=== PATIENT | male | born 1940 | race Hispanic/Latino ===

== ENCOUNTER → 2017-08-18 | Outpatient (CLI) | payer MEDICARE ==
[~2017-08-18] MED LIST: CALCIUM PO; CARAFATE1 GM/10 ML PO; DEXILANT60 MG; DEXILANT60 MG PO; DIOVAN160 MG PO; DIOVAN80 MG PO; DOXYCYCLINE HY100 MG PO; GABAPENTIN100 MG PO; LISINOPRIL-HCT1 EACH PO; LISINOPRIL20 MG PO; LOSARTAN PO; MAGNESIUM PO; MELATONIN3 MG PO; MULTI-VITAMIN1 EACH PO; NEXIUM40 MG PO; PANTOPRAZOLE SO40 MG PO; PRAVASTATIN SOD40 MG PO; PRILOSEC40 MG PO; TEMAZEPAM15 MG PO; TYLENOL WITH C1 EACH PO; ZINC PO
--- NOTE | 2017-08-18 11:21 | Diagnostic Imaging Report ---
PROCEDURE: SMALL BOWEL SERIES Comparison: None. Indications: ABDOMEN PAIN Technique: Small bowel follow through exam was performed using oral barium. Preliminary image was obtained before administration of contrast and serial overhead images were obtained after administration of oral barium. Fluoroscopy was performed and spot images were obtained. Findings: SMALL BOWEL FOLLOW THROUGH: Small bowel loops are normal in caliber and distribution. Spot compression views of the terminal ileum are normal. The transit time was normal. IMPRESSION: No acute radiographic abnormality. Dictated by: Matthew Camargo M.D. on 08/18/2017 at 11:30 Electronically approved by: Matthew Camargo M.D. on 08/18/2017 at 11:30
== END ==
LOC: DX 07:22
PROVIDERS: ATTEND Internal Medicine Gastroenterology
DX: R10.9 Unspecified abdominal pain (principal)
CPT/HCPCS: 74250

== ENCOUNTER → 2017-09-13 | Outpatient (CLI) | payer MEDICARE ==
[~2017-09-13] MED LIST changes: +GADOBENATE DIMEGLUMINE 1 ML IV ONE; +SODIUM CHLORIDE 0.9% 50ML 50 ML ONE
[2017-09-13 08:55] LABS: BLOOD UREA NITROGEN 6 mg/dL (8-26); BUN/CREATININE RATIO 7 (6-25); EST GLOMERULAR FILTRATION RATE > 60 ML/MIN (60-)
[2017-09-13 08:56] LABS: CREATININE, SERUM 0.9 mg/dL (0.9-1.3)
--- NOTE | 2017-09-16 13:22 | Diagnostic Imaging Report ---
EXAM: MRA ABDOMEN WOW DATE: 09/13/2017 8:18 AM INDICATION: Abdominal pain COMPARISON: CT 03/01/2017 Technique: Multiplanar multisequence MRI/MRA of the abdomen was obtained before and after the administration of 28 mL of MultiHance IV contrast. Limitations: Moderate motion artifact. FINDINGS: Visualized chest: Ascending aorta 40 mm. No pleural effusion. Common origin of the left common carotid and right brachycephalic arteries present. Left atrial enlargement suspected. Solid organs: There is a 21 mm simple appearing cystic lesion in the left hepatic lobe. Subcentimeter exophytic cyst mid right kidney. Trace bilateral perinephric stranding statistically senescent. Solid organs are otherwise unremarkable. Venous structures: No thrombus identified in the IVC. Arterial structures: No aortic aneurysm or dissection. No significant atherosclerotic change identified. Visualized mesenteric arteries are patent. Dual left renal arteries better demonstrated on previous CT. There is possible narrowing of the proximal celiac trunk. Visualized bowel: No small bowel obstructive changes. IMPRESSION: 1. No aortic aneurysm or significant atherosclerotic change. Within limitations, mesenteric vessels grossly unremarkable. Narrowing proximal celiac trunk possible. Dedicated CTA could be obtained for further evaluation if indicated. 2. Simple appearing cyst in the liver and right kidney. 3. Ectasia ascending thoracic aorta. 4. Left atrial enlargement. Signed by: Dr. Richmond Roper MD on 09/16/2017 1:19 PM
== END ==
LOC: MRI 07:54
PROVIDERS: ATTEND Internal Medicine Gastroenterology
DX: R10.9 Unspecified abdominal pain (principal); M54.10 Radiculopathy, site unspecified
CPT/HCPCS: 36415; 82565; 84520; C8902; 74185

== ENCOUNTER 2018-10-14 10:20 | Emergency (ER) | payer MEDICARE ==
[~2018-10-14] VITALS: Ht 165.1 cm; Wt 62.6 kg
[~2018-10-14 10:20] MED LIST changes: -GADOBENATE DIMEGLUMINE 1 ML IV ONE; -SODIUM CHLORIDE 0.9% 50ML 50 ML ONE
--- OUTSIDE RECORDS SUMMARY | 2018-10-14 10:24 | XMS REPORT ---
Author Author [facility] Address Unknown Phone Unavailable Care Team Providers Care Group Director Name Role Phone ANNE-MARIE LANZA Unavailable Unavailable Problems This patient has no known problems. Allergies, Adverse Reactions, Alerts This patient has no known allergies or adverse reactions. Medications This patient has no known medications. Results Test Description Test Time Test Comments Text Results Atomic Results Result Comments MRA ABDOMEN WOW [place] [address] Patient Name: MASON CRAWLEY JR MR #: [id number] : 1940 Age/Sex: 77/M Req #: [id number] Adm Physician: Ordered by: ANNE-MARIE LANZA MD Report #: [id number] Location: MRI Room/Bed: Procedure: [id number] MRI/MRA ABDOMEN WOW Exam Date: 09/13/17 Exam Time: 15 REPORT STATUS: Signed EXAM: MRA ABDOMEN WOW DATE: 09/13/2017 8:18 AM INDICATION: Abdominal pain COMPARISON: CT 03/01/2017 Technique: Multiplanar multisequence MRI/MRA of the abdomen was obtained before and after the administration of 28 mL of MultiHance IV contrast. Limitations: Moderate motion artifact. FINDINGS: Visualized chest: Ascending aorta 40 mm. No pleural effusion. Common origin of the left common carotid and right b rachycephalic arteries present. Left atrial enlargement suspected. Solid organs: There is a 21 mm simple appearing cystic lesion in the left hepatic lobe. Subcentimeter exophytic cyst mid right kidney. Trace bilateral perinephric stranding statistically senescent. Solid organs are otherwise unremarkable. Venous structures: No thrombus identified in the IVC. Arterial structures: No aortic aneurysm or dissection. No significant atherosclerotic change identified. Visualized mesenteric arteries are patent. Dual left renal arteries better demonstrated on previous CT. There is possible narrowing of the proximal celiac trunk. Visualized bowel: No small bowel obstructive changes. IMPRESSION: 1. No aortic aneurysm or significant atherosclerotic change. Within limitations, mesenteric vessels grossly unremarkable. Narrowing proximal celiac trunk possible. Dedicated CTA could be obtained for further evaluation if indicated. 2. Simple appearing cyst in the liver and right kidney. 3. Ectasia ascending thoracic aorta. 4. Left atrial enlargement. Signed by: Dr. Richmond Roper MD on 09/16/2017 1:19 PM Dictated By: RICHMOND ROPER MD [id number] Transcribed By: RAQUEL on 09/16/17 1319 COPY TO: ANNE-MARIE LANZA MD SMALL BOWEL SERIES [place] [address] Patient Name: MASON CRAWLEY JR MR #: [id number] : 1940 Age/Sex: 77/M Req #: [id number] Adm Physician: Ordered by: ANNE-MARIE LANZA MD Report #: [id number] Location: DX Room/Bed: Procedure: [id number] DX/SMALL BOWEL SERIES Exam Date: 08/18/17 Exam Time: 1030 REPORT STATUS: Signed PROCEDURE: SMALL BOWEL SERIES Comparison: None. Indications: ABDOMEN PAIN Technique: Small bowel follow through exam was performed using oral barium. Preliminary image was obtained before administration of contrast and serial overhead images were obtained after administration of oral barium. Fluoroscopy was performed and spot images were obtained. Findings: SMALL BOWEL FOLLOW THROUGH: Small bowel loops are normal in caliber and distribution. Spot compression views of the terminal ileum are normal. The transit time was normal. IMPRESSION: No acute radiographic abnormality. Dictated by: Nicol Rebolledo M.D. on 08/18/2017 at 11:30 Electronically approved by: Nicol Rebolledo M.D. on 08/18/2017 at 11:30 Dictated By: NICOL REBOLLEDO MD 1130 Transcribed By: MARIELLE on 08/18/17 1130 COPY TO: ANNE-MARIE LANZA MD
--- OUTSIDE RECORDS SUMMARY | 2018-10-14 10:24 | XMS REPORT | Clinical Summary ---
Author Author [facility] Address Unknown Phone Unavailable Care Team Providers Care Acetylene Cutter Name Role Phone Toño Rogers MD PCP Allergies No Known Allergies Medications End Date Status Medication Sig Dispensed Refills Start Date Active calcium carbonate Take 1 tablet 0 (CALCIUM 500 ORAL) by mouth daily. Active magnesium 30 mg tablet Take 1 tablet 0 by mouth daily. Active zinc sulfate (ZINC-15 Take 1 tablet 0 ORAL) by mouth daily. Active cholecalciferol, vitamin Take 2,000 0 D3, (VITAMIN D3) 2,000 Units by unit capsule capsule mouth daily. Active HYDROcodone-acetaminophen 1 tablet as 0 (NORCO) 7.5-325 mg per needed. 8 tablet Active famotidine (PEPCID) 40 MG 1 tablet 2 0 tablet (two) times a 8 day. Active nortriptyline (PAMELOR) 1 capsule 0 25 MG capsule nightly. 8 Active temazepam (RESTORIL) 30 1 capsule 0 mg capsule daily. 8 Active cyanocobalamin (VITAMIN Take 1,000 0 B-12) 1000 MCG tablet mcg by mouth daily. Active apixaban (ELIQUIS) 5 mg 10mg po bid 82 tablet 0 tablet times seven 9 days, then 5mg po bid times 14 days with food dispense qs( todays pm dose given in ER) dispense qs 03/23/2018 Discontinued LYRICA 100 mg capsule 1 capsule 2 0 (two) times a 8 day. 06/02/2018 Discontinued LYRICA 100 mg Take 1 90 capsule 1 capsuleIndications: capsule by 8 Neuropathic pain mouth 3 times daily 09/09/2018 pregabalin (LYRICA) 100 Take 1 120 capsule 2 MG capsuleIndications: capsule po in 8 Neuropathic pain am and afternoon and 2 capsules qhs 08/18/2018 acetaminophen-codeine Take 1 tablet 14 tablet 0 (TYLENOL WITH CODEINE #3) by mouth 9 300-30 mg per tablet every 6 (six) hours as needed for moderate pain for up to 5 days. Active Problems Problem Noted Date Idiopathic peripheral neuropathy 03/23/2018 Neuropathic pain 03/23/2018 Chronic right-sided low back pain without sciatica 03/23/2018 Encounters Care Team Description Date Type Specialty Monty Schmidt MD Acute deep vein thrombosis (DVT) of distal vein of right lower extremity (HCC) (Primary Dx) 08/13/2018 Emergency Emergency Medicine Alicia Dacosta MD 06/22/2018 Telephone Neurology Alicia Dacosta MD Neuropathic pain 06/02/2018 Refill Neurology Alicia Dacosta MD 05/11/2018 Telephone Neurology Alicia Dacosta MD 04/27/2018 Telephone Neurology Alicia Dacosta MD 04/26/2018 Telephone Neurology Alicia Dacosta MD Idiopathic peripheral neuropathy (Primary Dx) 04/20/2018 Telephone Neurology Alicia Dacosta MD Idiopathic peripheral neuropathy (Primary Dx); Neuropathic pain; Chronic right-sided low back pain without sciatica 03/23/2018 Office Visit Neurology after 10/13/2017 Family History Medical History Relation Name Comments Lung cancer Father Lung cancer Mother Stroke Mother Relation Name Status Comments Father (Age 65) Mother (Age 65) Social History Date Tobacco Use Types Packs/Day Years Used Never Smoker Smokeless Tobacco: Never Used Alcohol Use Drinks/Week oz/Week Comments Yes 7 Shots of 4.2 liquor Sex Assigned at Date Recorded Not on file Industry Job Start Date Occupation Not on file Not on file Not on file Travel End Travel History Travel Start No recent travel history available. Last Filed Vital Signs Time Taken Vital Sign Reading 08/13/2018 6:57 PM MATURITY CHECKER Blood Pressure 169/95 08/13/2018 6:57 PM MATURITY CHECKER Pulse 79 08/13/2018 1:16 PM MATURITY CHECKER Temperature 37.1 C (98.8 F) 08/13/2018 6:57 PM MATURITY CHECKER Respiratory Rate 17 08/13/2018 6:57 PM MATURITY CHECKER Oxygen Saturation 95% - Inhaled Oxygen - Concentration 08/13/2018 1:17 PM MATURITY CHECKER Weight 64 kg (141 lb) 08/13/2018 1:17 PM MATURITY CHECKER Height 165.1 cm (5' 5") 08/13/2018 1:17 PM MATURITY CHECKER Body Mass Index 23.46 Plan of Treatment Health Maintenance Due Date Last Done Comments SHINGLES VACCINES (#1) 1990 65+ PNEUMOCOCCAL VACCINE 2005 (1 of 2 - PCV13) PNEUMOCOCCAL 2005 POLYSACCHARIDE VACCINE AGE 65 AND OVER INFLUENZA VACCINE 03/09/2018 Procedures Comments Procedure Name Priority Date/Time Associated Diagnosis US DUPLEX VENOUS LOWER STAT 08/13/2018 EXTREMITY RIGHT 5:51 PM MATURITY CHECKER ESTIMATED GFR STAT 08/13/2018 5:20 PM MATURITY CHECKER PARTIAL THROMBOPLASTIN STAT 08/13/2018 TIME (PTT) 5:20 PM MATURITY CHECKER PROTHROMBIN TIME WITH INR STAT 08/13/2018 5:20 PM MATURITY CHECKER COMPREHENSIVE METABOLIC STAT 08/13/2018 PANEL 5:20 PM MATURITY CHECKER HC COMPLETE BLD COUNT STAT 08/13/2018 W/AUTO DIFF 5:20 PM MATURITY CHECKER XR TIBIA FIBULA 2 VW STAT 08/13/2018 RIGHT 3:05 PM MATURITY CHECKER IMMUNOFIXATION, SERUM Routine 04/21/2018 Idiopathic peripheral 2:06 PM CDT neuropathy VITAMIN B6 LEVEL, PLASMA Routine 04/21/2018 Idiopathic peripheral 2:06 PM CDT neuropathy VITAMIN B1 LEVEL, WHOLE Routine 04/21/2018 Idiopathic peripheral BLOOD 2:06 PM CDT neuropathy FOLATE LEVEL Routine 04/21/2018 Idiopathic peripheral 2:06 PM CDT neuropathy after 10/13/2017 Results * Us duplex venous lower extremity (08/13/2018 5:51 PM MATURITY CHECKER) Narrative Performed At [facility] The right lower extremity was positive for deep vein thrombosis in the superficial femoral vein, popliteal vein, tibial vein, and gastrocnemius vein. Performing Organization Address [facility]/Zipcode Phone Number [facility] [address] [place] [address] * Estimated GFR (08/13/2018 5:20 PM MATURITY CHECKER) Estimated GFR 81 mL/min/1.73 m2 JEAN CARLOS DESAI Comment: [facility] CatergoryUnitsInte rpretation G1 >=90 Normal or high G2 60-89Mildly decreased [id number] Mildly to moderately decreased L4w53-03 Moderately to severely decreased G4 15-29Severely decreased G5 <15Kidney failure The eGFR was calculated using the Chronic Kidney Disease Epidemiology Collaboration (CKD-EPI) equation. Interpretation is based on recommendations of the National Kidney Foundation-Kidney Disease Outcomes Quality Initiative (NKF-KDOQI) published in 2014. Specimen Plasma specimen Performing Organization Address [facility] Phone Number [facility] [address] [place] [address] PATHOLOGY [address] * Partial thromboplastin time, activated (08/13/2018 5:20 PM MATURITY CHECKER) PTT 28.1 23.0 - 36.0 sec [facility] Comment: [facility] PTT therapeutic range for unfractionated heparin is 61.0-112.0 seconds which corresponds to Anti-Xa 0.3-0.7 U/ml. Specimen Blood Performing Organization Address [facility] Phone Number [address] [place] [address] PATHOLOGY AND [facility] MEDICINE [address] * Prothrombin time with INR (08/13/2018 5:20 PM MATURITY CHECKER) Prothrombin time 13.0 11.5 - 14.5 sec [facility] INR 1.0 [facility] Comment: [facility] The International Normalized Ratio (INR) is a therapeutic monitoring tool for patients who are stable on oral anticoagulant therapy. An INR of 2.0-3.0 is suggested for deep vein thrombosis/pulmonary embolism. Specimen Blood Performing Organization Address [facility] Phone Number [facility] [place] [address] PATHOLOGY AND GENOMIC MEDICINE [address] * CBC with platelet and differential (08/13/2018 5:20 PM MATURITY CHECKER) WBC 8.02 4.50 - 11.00 k/uL [facility] RBC 4.66 4.40 - 6.00 m/uL [facility] HGB 16.4 14.0 - 18.0 g/dL [facility] HCT 48.9 41.0 - 51.0 % [facility] MCV 104.9 (H) 82.0 - 100.0 fL [facility] MCH 35.2 (H) 27.0 - 34.0 pg [facility] MCHC 33.5 31.0 - 37.0 g/dL [facility] RDW - SD 56.7 (H) 37.0 - 55.0 fL [facility] MPV 10.4 8.8 - 13.2 fL [facility] Platelet count 165 150 - 400 k/uL [facility] Nucleated RBC 0.00 /100 WBC [facility] Neutrophils 61.0 39.0 - 69.0 % [facility] Lymphocytes 24.7 (L) 25.0 - 45.0 % [facility] Monocytes 11.0 (H) 0.0 - 10.0 % [facility] Eosinophils 1.9 0.0 - 5.0 % [facility] Basophils 1.2 (H) 0.0 - 1.0 % [facility] Specimen Blood Performing Organization Address City/State/Zipcode Phone Number [facility] [address] [place] [address] PATHOLOGY AND GENOMIC MEDICINE [address] * Comprehensive metabolic panel (08/13/2018 5:20 PM MATURITY CHECKER) Sodium 140 135 - 148 mEq/L [facility] Potassium 4.3 3.5 - 5.0 mEq/L [facility] Chloride 104 98 - 112 mEq/L [facility] CO2 25 24 - 31 mEq/L [facility] Anion gap 11@ANIO 7 - 15 mEq/L [facility] BUN 14 8 - 23 mg/dL [facility] Creatinine 0.90 0.70 - 1.20 mg/dL [facility] Glucose 111 (H) 65 - 99 mg/dL [facility] Calcium 9.5 8.8 - 10.2 mg/dL [facility] Protein 8.0 6.3 - 8.3 g/dL [facility] Comment: [facility] 4.6-7.0 g/dL 1 week 4.4-7.6 g/dL 7 months-1year 5.1-7.3 g/dL 1-2 years5.6-7 .5 g/dL >3 years6.0-8 .0 g/dL 18-150 6.3-8.3 g/dL Albumin 4.3 3.5 - 5.0 g/dL [facility] A/G ratio 1.2 0.7 - 3.8 [facility] Alkaline phosphatase 85 40 - 129 U/L [facility] AST 25 10 - 50 U/L [facility] ALT 21 5 - 50 U/L [facility] Total bilirubin 0.5 0.0 - 1.2 mg/dL [facility] Specimen Plasma specimen Performing Organization Address City/State/Zipcode Phone Number [facility] [place] [id number] [place] [address] [place] [id number] PATHOLOGY AND GENOMIC MEDICINE [facility] [id number] [place] [address] * XR Tibia Fibula 2 Vw Right (08/13/2018 3:05 PM MATURITY CHECKER) Narrative Performed At EXAMINATION:XR TIBIA FIBULA 2 VW RIGHT [facility] CLINICAL HISTORY:lower leg pain COMPARISON:None. IMPRESSION: No acute fracture, dislocation or focal osseous abnormality noted. Bone mineralization is within normal limits for age. There are degenerative changes of the medial femorotibial joint with marginal osteophytes. [facility] Procedure Note Hm Interface, Radiology Results Incoming - 08/13/2018 3:12 PM MATURITY CHECKER EXAMINATION: XR TIBIA FIBULA 2 VW RIGHT CLINICAL HISTORY: lower leg pain COMPARISON: None. IMPRESSION: No acute fracture, dislocation or focal osseous abnormality noted. Bone mineralization is within normal limits for age. There are degenerative changes of the medial femorotibial joint with marginal osteophytes. [facility] Performing Organization Address [facility] Cent[facility]ode Phone Number ROBERT [address] [place] [address] * Vitamin B1 level, whole blood (04/21/2018 2:06 PM CDT) Vitamin B1, whole blood 152 78 - 185 nmol/L [facility] Comment: [facility] Vitamin supplementation within 24 hours prior to blood draw may affect the accuracy of results. This test was developed and its analytical performance characteristics have been determined by [facility]. It has not been cleared or approved by FDA. This assay has been validated pursuant to the CLIA regulations and is used for clinical purposes. Specimen Blood Narrative Performed At AN UPDATE OR CORRECTION HAS BEEN MADE TO NAME [facility] Agency Comment Performing Organization Information: Site ID: [id number] Name: [facility] Address: [address] [place] [id number] Director: Orlin Dominguez M.D., Ph.D Performing Organization Address [facility] Phone Number [facility] [address] [address] [place] * Immunofixation, serum (04/21/2018 2:06 PM CDT) Interpretation Comment: [facility] Normal pattern. No monoclonal [facility] proteins detected. II Specimen Blood Narrative Performed At AN UPDATE OR CORRECTION HAS BEEN MADE TO NAME [facility] Agency Comment Performing Organization Information: Site ID: [id number] Name: [facility] Address: [address] [place] [address] Director: Dr. Pranav Bailon Performing Organization Address [facility] Phone Number [facility] [address] [facility] [address] II * Vitamin B6 level, plasma (04/21/2018 2:06 PM CDT) Vitamin B6 31.7 (H) 2.1 - 21.7 ng/mL [facility] Comment: [facility] Vitamin supplementation within 24 hours prior to blood draw may affect the accuracy of results. This test was developed and its analytical performance characteristics have been determined by [facility]. It has not been cleared or approved by the US Food and Drug Administration. This assay has been validated pursuant to the CLIA regulations and is used for clinical purposes. Specimen Blood Narrative Performed At AN UPDATE OR CORRECTION HAS BEEN MADE TO NAME [facility] Resulting Agency Comment Performing Organization Information: Site ID: [id number] Name: [facility] Address: [id number] [place] [phone] Director: Orlin Dominguez M.D., Ph.D Performing Organization Address City/[facility] Phone Number [facility] [address] [address] [place] * Folate level (04/21/2018 2:06 PM CDT) Folate >24.0 ng/mL [facility] Comment: [facility] Reference Range Low: <3.4 Borderline:3.4-5.4 Normal:>5.4 Specimen Blood Narrative Performed At AN UPDATE OR CORRECTION HAS BEEN MADE TO NAME [facility] Resulting Agency Comment Performing Organization Information: Site ID: [id number] Name: [facility] Address: [address] [place] [id number] Director: Lindsay Sanchez Performing Organization Address City/[facility] Phone Number [employer] [facility] [place] [address] [place] [phone] after 10/13/2017 Insurance Payer Benefit Subscriber ID Type Phone Address Plan / Group AETNA MEDICARE AETNA xxxxxxxx HMO MEDICARE HMO/PPO [facility] Advance Directives Patient has advance care planning documents on file. For more information, valeriano holland contact: Jean Carlos Desai [address] [place] [address]
--- OUTSIDE RECORDS SUMMARY | 2018-10-14 10:24 | XMS REPORT ---
Author Author Álvaro Bautista Organization [employer] Address Unknown Phone Unavailable Care Team Providers Care Matrix Drier Tender Name Role Phone Álvaro Bautista CP Unavailable Allergies, Adverse Reactions, Alerts Substance Reaction Event Type N.K.D.A. 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 Problem Other diseases of larynx J38.7 Active Problem Chronic laryngitis (LPRD) J37.0 Active Problem Allergic rhinitis 477 Active Problem Hoarseness R49.8 Active Problem GERD K21.9 Active Medications Medication Code System Code Instructions Start Date End Date Status Dosage Acetaminophen [facility] [address]-94 Active not defined Pantoprazole Sodium [facility] 45473654850 Active not defined Mirtazapine [facility] [address]-88 Active not defined Eliquis [facility] [address]-22 Active not defined Lisinopril [facility] [id number] Active not defined Famotidine [facility] [address]-66 Active not defined Results No Known Results Summary Purpose [employer]ClinicalWorks Submission
--- NOTE | 2018-10-14 11:29 | Diagnostic Imaging Report ---
EXAMINATION: Head CT HISTORY: Status post fall week ago, head trauma, pain COMPARISON: Head CT report of 03/11/2011. TECHNIQUE: Multidetector axial images were obtained without contrast from the foramen magnum to the vertex . The images were reconstructed using brain and bone algorithms. Thin section brain images were reformatted into coronal and sagittal planes. Image quality: Motion/streaking artifact limits the evaluation of the skull base and posterior cranial fossa. Dose modulation, iterative reconstruction, and/or weight based adjustment of the mA/kV was utilized to reduce the radiation dose to as low as reasonably achievable. FINDINGS: Parenchyma: 1. No abnormal densities. 2. No mass or hemorrhage. No CT evidence of acute territorial vascular insult. Extra-axial spaces:No abnormal density. No extra-axial fluid collections Brain volume: Normal for age. 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 Arteries: No density suggestive of thrombus. Dural sinuses: No abnormal density. Extra-axial spaces: No abnormal density. Foramen magnum: No mass, Chiari malformation, or basilar invagination. Sella: No obvious mass. Paranasal/mastoid sinuses: Imaged portions unremarkable. Skull/Scalp: No lytic or blastic lesions. Left parietal scalp swelling/hematoma without underlying fractures.. IMPRESSION: 1. No acute posttraumatic intracranial hemorrhage. 2. Small left parietal scalp swelling without underlying fractures. 3. 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 Signed by: Dr. Elisha Chery M.D. on 10/14/2018 11:26 AM
[2018-10-14 11:56] VITALS: BP 148/92
== END 2018-10-14 12:08 | disposition home or self-care (01) ==
LOC: FSED 10:20
DX: R42 Dizziness and giddiness (principal)
CPT/HCPCS: 70450; 80053; 81003; 84484; 85025; 93005; 99284

== ENCOUNTER → 2018-11-04 | Day surgery (SDC) | payer MEDICARE ==
[2018-11-02 14:55] LABS: BASOPHILS # (AUTO) 0.1 (0.0-0.1); BASOPHILS % 1.3 % (0.0-1.0); EOSINOPHILS # (AUTO) 0.1 (0.0-0.4); EOSINOPHILS % 1.1 % (0.0-6.0); HEMATOCRIT 55.5 % (38.2-49.6); HEMOGLOBIN 18.9 g/dL (14.0-18.0); LYMPHOCYTES # (AUTO) 1.5 (1.0-3.2); LYMPHOCYTES % 32.8 % (18.0-39.1); MEAN CORPUSCULAR HEMOGLOBIN 35.1 pg (28-32); MEAN CORPUSCULAR HGB CONC 34.1 g/dL (31-35); MONOCYTES # (AUTO) 0.7 (0.2-0.8); NEUTROPHILS # (AUTO) 2.3 (2.1-6.9); NEUTROPHILS % 49.6 % (38.7-80.0); PLATELET COUNT 173 x10e3/uL (140-360); RED BLOOD COUNT 5.39 x10e6/uL (4.3-5.7); RED CELL DISTRIBUTION WIDTH 13.3 % (11.7-14.4)
[~2018-11-04] MED LIST changes: +FAMOTIDINE20 MG PO; +LIDOCAINE HCL 2% LOCAL INJ 5 ML SDV VIAL INJ ONE; +PROPOFOL IV EMULSION 10 MG/ML 50 ML VIAL ONE; +XARELTO20 MG PO
--- OUTSIDE RECORDS SUMMARY | 2018-11-04 13:12 | XMS REPORT | Clinical Summary ---
Author Author [facility] Address Unknown Phone Unavailable Care Team Providers Care Detonator Assembler Name Role Phone Toño Rogers MD PCP [...] without sciatica 03/23/2018 Office Visit Neurology after 11/03/2017 Family History Medical History Relation Name Comments [...] Taken Vital Sign Reading 08/13/2018 6:57 PM ONCOLOGY PATIENT NAVIGATOR Blood Pressure 169/95 08/13/2018 6:57 PM ONCOLOGY PATIENT NAVIGATOR Pulse 79 08/13/2018 1:16 PM ONCOLOGY PATIENT NAVIGATOR Temperature 37.1 C (98.8 F) 08/13/2018 6:57 PM ONCOLOGY PATIENT NAVIGATOR Respiratory Rate 17 08/13/2018 6:57 PM ONCOLOGY PATIENT NAVIGATOR Oxygen Saturation 95% - Inhaled Oxygen - Concentration 08/13/2018 1:17 PM ONCOLOGY PATIENT NAVIGATOR Weight 64 kg (141 lb) 08/13/2018 1:17 PM ONCOLOGY PATIENT NAVIGATOR Height 165.1 cm (5' 5") 08/13/2018 1:17 PM ONCOLOGY PATIENT NAVIGATOR Body Mass Index 23.46 Plan of Treatment Health Maintenance Due Date Last Done Comments SHINGLES VACCINES (#1) 1990 65+ PNEUMOCOCCAL VACCINE 2005 (1 of 2 - PCV13) PNEUMOCOCCAL 2005 POLYSACCHARIDE VACCINE AGE 65 AND OVER INFLUENZA VACCINE 03/09/2018 Procedures Comments Procedure Name Priority Date/Time Associated Diagnosis US DUPLEX VENOUS LOWER STAT 08/13/2018 EXTREMITY RIGHT 5:51 PM ONCOLOGY PATIENT NAVIGATOR ESTIMATED GFR STAT 08/13/2018 5:20 PM ONCOLOGY PATIENT NAVIGATOR PARTIAL THROMBOPLASTIN STAT 08/13/2018 TIME (PTT) 5:20 PM ONCOLOGY PATIENT NAVIGATOR PROTHROMBIN TIME WITH INR STAT 08/13/2018 5:20 PM ONCOLOGY PATIENT NAVIGATOR COMPREHENSIVE METABOLIC STAT 08/13/2018 PANEL 5:20 PM ONCOLOGY PATIENT NAVIGATOR HC COMPLETE BLD COUNT STAT 08/13/2018 W/AUTO DIFF 5:20 PM ONCOLOGY PATIENT NAVIGATOR XR TIBIA FIBULA 2 VW STAT 08/13/2018 RIGHT 3:05 PM ONCOLOGY PATIENT NAVIGATOR IMMUNOFIXATION, SERUM Routine 04/21/2018 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 Performing Organization Address [facility]/Zipcode Phone Number [facility] [address] [place] [address] * Estimated GFR (08/13/2018 5:20 PM ONCOLOGY PATIENT NAVIGATOR) Estimated GFR 81 mL/min/1.73 m2 JEAN CARLOS DESAI Comment: [facility] CatergoryUnitsInte rpretation G1 >=90 Normal or high G2 60-89Mildly decreased [id number] Mildly to moderately decreased [id number] Moderately to severely decreased G4 15-29Severely decreased G5 <15Kidney failure The eGFR was calculated using the Chronic Kidney Disease Epidemiology Collaboration (CKD-EPI) equation. Interpretation is based on recommendations of the National Kidney Foundation-Kidney Disease Outcomes Quality Initiative (NKF-KDOQI) published in 2014. Specimen Plasma specimen Performing Organization Address [facility] [place] [facility] [address] [place] [address] PATHOLOGY [address] * Partial thromboplastin time, activated (08/13/2018 5:20 PM ONCOLOGY PATIENT NAVIGATOR) PTT 28.1 23.0 - 36.0 sec [facility] Comment: [facility] PTT therapeutic range for unfractionated heparin is 61.0-112.0 seconds which corresponds to Anti-Xa 0.3-0.7 U/ml. Specimen Blood Performing Organization Address [facility] [place] Phone Number [address] [place] [address] PATHOLOGY AND [facility] MEDICINE [address] * Prothrombin time with INR (08/13/2018 5:20 PM ONCOLOGY PATIENT NAVIGATOR) Prothrombin time 13.0 11.5 - 14.5 sec [facility] INR 1.0 [facility] Comment: [facility] The International Normalized Ratio (INR) is a therapeutic monitoring tool for patients who are stable on oral anticoagulant therapy. An INR of 2.0-3.0 is suggested for deep vein thrombosis/pulmonary embolism. Specimen Blood Performing Organization Address [facility] Phone Number [facility] [place] [address] PATHOLOGY AND GENOMIC MEDICINE [address] * CBC with platelet and differential (08/13/2018 5:20 PM ONCOLOGY PATIENT NAVIGATOR) WBC 8.02 4.50 - 11.00 k/uL [facility] RBC 4.66 4.40 - 6.00 m/uL [facility] HGB 16.4 14.0 - 18.0 g/dL [facility] HCT 48.9 41.0 - 51.0 % [facility] MCV 104.9 (H) 82.0 - 100.0 fL [facility] MCH 35.2 (H) 27.0 - 34.0 pg [facility] MCHC 33.5 31.0 - 37.0 g/dL [facility] RDW - SD 56.7 (H) 37.0 - 55.0 fL [facility] MPV 10.4 8.8 - 13.2 fL [facility] Platelet count 165 150 - 400 k/uL [facility] Nucleated RBC 0.00 /100 WBC [facility] Neutrophils 61.0 39.0 - 69.0 % [facility] Lymphocytes 24.7 (L) 25.0 - 45.0 % [facility] Monocytes 11.0 (H) 0.0 - 10.0 % [facility] Eosinophils 1.9 0.0 - 5.0 % [facility] Basophils 1.2 (H) 0.0 - 1.0 % [facility] Specimen Blood Performing Organization Address City/State/Zipcode Phone Number [facility] [address] [place] [address] PATHOLOGY AND GENOMIC MEDICINE [address] * Comprehensive metabolic panel (08/13/2018 5:20 PM ONCOLOGY PATIENT NAVIGATOR) Sodium 140 135 - 148 mEq/L [facility] Potassium 4.3 3.5 - 5.0 mEq/L [facility] Chloride 104 98 - 112 mEq/L [facility] CO2 25 24 - 31 mEq/L [facility] Anion gap 11@ANIO 7 - 15 mEq/L [facility] BUN 14 8 - 23 mg/dL [facility] Creatinine 0.90 0.70 - 1.20 mg/dL [facility] Glucose 111 (H) 65 - 99 mg/dL [facility] Calcium 9.5 8.8 - 10.2 mg/dL [facility] Protein 8.0 6.3 - 8.3 g/dL [facility] Comment: [facility] 4.6-7.0 g/dL 1 week 4.4-7.6 g/dL 7 months-1year 5.1-7.3 g/dL 1-2 years5.6-7 .5 g/dL >3 years6.0-8 .0 g/dL 18-150 6.3-8.3 g/dL Albumin 4.3 3.5 - 5.0 g/dL [facility] A/G ratio 1.2 0.7 - 3.8 [facility] Alkaline phosphatase 85 40 - 129 U/L [facility] AST 25 10 - 50 U/L [facility] ALT 21 5 - 50 U/L [facility] Total bilirubin 0.5 0.0 - 1.2 mg/dL [facility] Specimen Plasma specimen Performing Organization Address City/State/Zipcode Phone Number [facility] [place] [id number] [place] [address] [place] [id number] PATHOLOGY AND GENOMIC MEDICINE [facility] [address] [place] [address] * XR Tibia Fibula 2 Vw Right (08/13/2018 3:05 PM ONCOLOGY PATIENT NAVIGATOR) Narrative Performed At EXAMINATION:XR TIBIA FIBULA 2 VW RIGHT [facility] CLINICAL HISTORY:lower leg pain COMPARISON:None. IMPRESSION: No acute fracture, dislocation or focal osseous abnormality noted. Bone mineralization is within normal limits for age. There are degenerative changes of the medial femorotibial joint with marginal osteophytes. [facility] Procedure Note Hm Interface, Radiology Results Incoming - 08/13/2018 3:12 PM ONCOLOGY PATIENT NAVIGATOR EXAMINATION: XR TIBIA FIBULA 2 VW RIGHT CLINICAL HISTORY: lower leg pain COMPARISON: None. IMPRESSION: No acute fracture, dislocation or focal osseous abnormality noted. Bone mineralization is within normal limits for age. There are degenerative changes of the medial femorotibial joint with marginal osteophytes. [facility] Performing Organization Address [facility] Phone Number [facility] [address] [place] [address] * Vitamin B1 level, whole blood (04/21/2018 2:06 PM CDT) Vitamin B1, whole blood 152 78 - 185 nmol/L [facility] Comment: [facility] Vitamin supplementation within 24 hours prior to blood draw may affect the accuracy of results. This test was developed and its analytical performance characteristics have been determined by [facility]. It has not been cleared or approved by FDA. This assay has been validated pursuant to the CLIA regulations and is used for clinical purposes. Specimen Blood Narrative Performed At AN UPDATE OR CORRECTION HAS BEEN MADE TO NAME [facility] Comment Performing Organization Information: Site ID: [id number] Name: [facility] Address: [address] [place] [id number] Director: Orlin Dominguez M.D., Ph.D Performing Organization Address [facility] Phone Number [facility] [address] [address] [place] * Immunofixation, serum (04/21/2018 2:06 PM CDT) Interpretation Comment: [facility] Normal pattern. No monoclonal [facility] proteins detected. II Specimen Blood Narrative Performed At AN UPDATE OR CORRECTION HAS BEEN MADE TO NAME [facility] Comment Performing Organization Information: Site ID: [id number] Name: [facility] Address: [address] [place] [address] Director: Dr. Pranav Bailon Performing Organization Address [facility] [place] Phone Number [facility] [address] [facility] [place] [address] II * Vitamin B6 level, plasma (04/21/2018 2:06 PM CDT) Vitamin B6 31.7 (H) 2.1 - 21.7 ng/mL [facility] Comment: [facility] Vitamin supplementation within 24 hours prior to blood draw may affect the accuracy of results. This test was developed and its analytical performance characteristics have been determined by [facility]. It has not been cleared or approved by the US Food and Drug Administration. This assay has been validated pursuant to the CLIA regulations and is used for clinical purposes. Specimen Blood Narrative Performed At AN UPDATE OR CORRECTION HAS BEEN MADE TO NAME [facility] Resulting Agency Comment Performing Organization Information: Site ID: [id number] Name: [facility] [place] Address: [id number] [place] [phone] Director: Orlin Dominguez M.D., Ph.D Performing Organization Address City/[facility] Phone Number [facility] [address] [address] [place] * Folate level (04/21/2018 2:06 PM CDT) Folate >24.0 ng/mL [facility] Comment: [facility] Reference Range Low: <3.4 Borderline:3.4-5.4 Normal:>5.4 Specimen Blood Narrative Performed At AN UPDATE OR CORRECTION HAS BEEN MADE TO NAME [facility] Resulting Agency Comment Performing Organization Information: Site ID: [id number] Name: [facility] Address: [address] [place] [id number] Director: Lindsay Sanchez Performing Organization Address City/[facility] Phone Number [facility] [address] [place] [phone] after 11/03/2017 Insurance Payer Benefit Subscriber ID Type Phone Address Plan / Group AETNA MEDICARE AETNA xxxxxxxx HMO MEDICARE HMO/PPO [facility] Advance Directives Patient has advance care planning documents on file. For more information, valeriano holland contact: Jean Carlos Desai [address] [place] [address]
[2018-11-04 18:00] VITALS: BP 127/85
--- NOTE | 2018-11-04 18:28 | Operative Report ---
DATE OF PROCEDURE: 11/04/2018 SURGEON: Prem Coronado MD PROCEDURE: EGD with biopsies. INDICATIONS FOR EGD: Upper abdominal pain. MEDICATIONS: The patient was done under MAC, please see anesthesiologist's note. PROCEDURE IN DETAIL: With the patient in left lateral decubitus position, the flexible fiberoptic Olympus gastroscope was introduced into the esophagus under direct visualization without any difficulty. ? grade 1 esophageal varices were noted without active bleeding or stigmata of recent hemorrhage. The scope was then advanced with ease into the stomach traversing a small sliding hiatal hernia. Mucosa overlying the antrum and the body revealed some patchy areas of erythema and low grade to moderate edema. Multiple minute ulcers were noted in the antrum, some with stigmata of recent hemorrhage. Biopsies were obtained. The pylorus was intubated with ease and the scope was advanced all the way to the second portion of the duodenum. The scope was then withdrawn slowly and multiple minute ulcers were noted in the proximal second portion as well as the duodenal bulb and some with stigmata of recent hemorrhage. Biopsies were obtained. The scope was then withdrawn back into the stomach and retroflexed and mucosa overlying the fundus and cardia appeared to be within normal limits. The scope was then straightened out, it was subsequently withdrawn. The patient tolerated the procedure well. IMPRESSION: 1. Distal esophagitis. 2. ? grade 1 esophageal varices. 3. Small sliding hiatal hernia. 4. Gastritis, biopsied. 5. Multiple gastric ulcers, antrum somewhat stigmata of recent hemorrhage. Biopsies obtained. 6. Numerous minute duodenal ulcers, bulb on proximal second portion, some with stigmata of recent hemorrhage. PLAN: Follow up histology. Initiate Protonix 40 mg one p.o. q.a.m. a.c. and Carafate 1 g p.o. a.c. t.i.d. and at bedtime. Prem Coronado MD [facility] [place] /[id number] cc: Toño Rogers MD
== END | disposition home or self-care (01) ==
LOC: OR 13:10
PROVIDERS: ATTEND Internal Medicine Gastroenterology
DX: K29.70 Gastritis, unspecified, without bleeding (principal); K25.9 Gastric ulcer, unspecified as acute or chronic, without hemorrhage or perforation; K26.9 Duodenal ulcer, unspecified as acute or chronic, without hemorrhage or perforation; K44.9 Diaphragmatic hernia without obstruction or gangrene; K20.9 Esophagitis, unspecified; K21.9 Gastro-esophageal reflux disease without esophagitis; I10 Essential (primary) hypertension; Z01.810 Encounter for preprocedural cardiovascular examination; Z01.812 Encounter for preprocedural laboratory examination; Z79.02 Long term (current) use of antithrombotics/antiplatelets; Z86.718 Personal history of other venous thrombosis and embolism
CPT/HCPCS: 36415; 43239; 85025; 88305; 88312; 93005; J2001; J2704

== ENCOUNTER → 2019-01-09 | Day surgery (SDC) | payer MEDICARE ==
[2019-01-05 15:02] LABS: BASOPHILS # (AUTO) 0.1 (0.0-0.1); BASOPHILS % 1.1 % (0.0-1.0); EOSINOPHILS # (AUTO) 0.1 (0.0-0.4); EOSINOPHILS % 1.1 % (0.0-6.0); HEMATOCRIT 51.8 % (38.2-49.6); HEMOGLOBIN 18.5 g/dL (14.0-18.0); LYMPHOCYTES # (AUTO) 1.2 (1.0-3.2); LYMPHOCYTES % 21.7 % (18.0-39.1); MEAN CORPUSCULAR HEMOGLOBIN 35.9 pg (28-32); MEAN CORPUSCULAR HGB CONC 35.7 g/dL (31-35); MEAN CORPUSCULAR VOLUME 100.4 fL (81-99); MONOCYTES # (AUTO) 0.7 (0.2-0.8); MONOCYTES % 13.4 % (4.4-11.3); NEUTROPHILS # (AUTO) 3.5 (2.1-6.9); NEUTROPHILS % 62.5 % (38.7-80.0); PLATELET COUNT 200 x10e3/uL (140-360); RED BLOOD COUNT 5.16 x10e6/uL (4.3-5.7); RED CELL DISTRIBUTION WIDTH 13.8 % (11.7-14.4)
[~2019-01-09] MED LIST changes: +FENTANYL CITRATE/PF 100MCG/2 ML INJ ONE; +GLUCAGON FOR INJ 1 MG VIAL ONE; +MIDAZOLAM HCL 2 MG/2 ML VIAL ONE; +SUCRALFATE1 GM PO; +VIT B12 PO
--- OUTSIDE RECORDS SUMMARY | 2019-01-09 06:24 | XMS REPORT | Clinical Summary ---
Author Author Jean Carlos [facility] Organization [facility] Address Unknown Phone Unavailable Care Team Providers Care Mri Tech Name Role Phone Toño Rogers MD PCP [...] without sciatica 03/23/2018 Office Visit Neurology after 01/08/2018 Family History Medical History Relation Name Comments [...] Taken Vital Sign Reading 08/13/2018 6:57 PM [employer] Blood Pressure 169/95 08/13/2018 6:57 PM [employer] Pulse 79 08/13/2018 1:16 PM [employer] Temperature 37.1 C (98.8 F) 08/13/2018 6:57 PM [employer] Respiratory Rate 17 08/13/2018 6:57 PM [employer] LEAD[employer] Oxygen Saturation 95% - Inhaled Oxygen - Concentration 08/13/2018 1:17 PM [employer]AD[employer] Weight 64 kg (141 lb) 08/13/2018 1:17 PM [employer] LEAD[employer] Height 165.1 cm (5' 5") 08/13/2018 1:17 PM [employer] LEADER Body Mass Index 23.46 Plan of Treatment Health Maintenance Due Date Last Done Comments SHINGLES VACCINES (#1) 1990 65+ PNEUMOCOCCAL VACCINE 2005 (1 of 2 - PCV13) PNEUMOCOCCAL 2005 POLYSACCHARIDE VACCINE AGE 65 AND OVER INFLUENZA VACCINE 03/09/2019 Procedures Comments Procedure Name Priority Date/Time Associated Diagnosis US DUPLEX VENOUS LOWER STAT 08/13/2018 EXTREMITY RIGHT 5:51 PM [employer] ESTIMATED GFR STAT 08/13/2018 5:20 PM [employer] LEADER PARTIAL THROMBOPLASTIN STAT 08/13/2018 TIME (PTT) 5:20 PM [employer] LEADER PROTHROMBIN TIME WITH INR STAT 08/13/2018 5:20 PM [employer] LEADER COMPREHENSIVE METABOLIC STAT 08/13/2018 PANEL 5:20 PM [employer] LEAD[employer] HC COMPLETE BLD COUNT STAT 08/13/2018 W/AUTO DIFF 5:20 PM [employer] XR TIBIA FIBULA 2 VW STAT 08/13/2018 RIGHT 3:05 PM [employer] IMMUNOFIXATION, SERUM Routine 04/21/2018 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 Performing Organization Address City/[facility]/Zipcode Phone Number [facility] [address] [place] [address] * Estimated GFR (08/13/2018 5:20 PM ETHANOL QUALITY LEADER) Pathologist [facility] [place] Estimated GFR 81 mL/min/1.73 m2 [place] Comment: [facility] rpretation G1 >=90 Normal or high G2 60-89Mildly decreased [id number] Mildly to moderately decreased [id number] Moderately to severely decreased G4 15-29Severely decreased G5 <15Kidney failure The eGFR was calculated using the Chronic Kidney Disease Epidemiology Collaboration (CKD-EPI) equation. Interpretation is based on recommendations of the National Kidney Foundation-Kidney Disease Outcomes Quality Initiative (NKF-KDOQI) published in 2014. Specimen Plasma specimen Performing Organization Address [facility] Phone Number [facility] [address] [place] [address] PATHOLOGY AND [facility] MEDICINE [address] * Partial thromboplastin time, activated (08/13/2018 5:20 PM ETH[employer]AL[employer] LEADER) [facility] PTT 28.1 23.0 - 36.0 sec [place] Comment: [facility] PTT therapeutic range for [facility] unfractionated heparin is 61.0-112.0 seconds which corresponds to Anti-Xa 0.3-0.7 U/ml. Specimen Blood Performing Organization Address [facility] Phone Number [facility] [address] [place] [address] PATHOLOGY [address] * Prothrombin time with INR (08/13/2018 5:20 PM [employer]AL[employer] LEADER) [facility] Prothrombin 13.0 11.5 - 14.5 sec [facility] INR 1.0 [place] Comment: [place] The International Normalized [facility] Ratio (INR) is a therapeutic monitoring tool for patients who are stable on oral anticoagulant therapy. An INR of 2.0-3.0 is suggested for deep vein thrombosis/pulmonary embolism. Specimen Blood Performing Organization Address City/State/Zipcode Phone Number [address] [place] [address] PATHOLOGY AND GENOMIC MEDICINE [address] * CBC with platelet and differential (08/13/2018 5:20 PM [employer] LEADER) [facility] WBC 8.02 4.50 - 11.00 k/uL [facility] RBC 4.66 4.40 - 6.00 m/uL [facility] HGB 16.4 14.0 - 18.0 g/dL [facility] HCT 48.9 41.0 - 51.0 % [facility] MCV 104.9 (H) 82.0 - 100.0 fL [facility] MCH 35.2 (H) 27.0 - 34.0 pg [facility] MCHC 33.5 31.0 - 37.0 g/dL [facility] RDW - SD 56.7 (H) 37.0 - 55.0 fL [facility] MPV 10.4 8.8 - 13.2 fL [facility] Platelet count 165 150 - 400 k/uL [facility] Nucleated RBC 0.00 /100 WBC [facility] Neutrophils 61.0 39.0 - 69.0 % [facility] Lymphocytes 24.7 (L) 25.0 - 45.0 % [facility] Monocytes 11.0 (H) 0.0 - 10.0 % [facility] Eosinophils 1.9 0.0 - 5.0 % [facility] Basophils 1.2 (H) 0.0 - 1.0 % [facility] Specimen Blood Performing Organization Address City/[facility]/Zipcode Phone Number [address] [place] [address] PATHOLOGY AND GENOMIC MEDICINE [address] * Comprehensive metabolic panel (08/13/2018 5:20 PM ETHANOL QUALITY LEADER) [facility] Sodium 140 135 - 148 mEq/L [facility] Potassium 4.3 3.5 - 5.0 mEq/L [facility] Chloride 104 98 - 112 mEq/L [facility] CO2 25 24 - 31 mEq/L [facility] Anion gap 11@ANIO 7 - 15 mEq/L [facility] BUN 14 8 - 23 mg/dL [facility] Creatinine 0.90 0.70 - 1.20 mg/dL [facility] Glucose 111 (H) 65 - 99 mg/dL [facility] Calcium 9.5 8.8 - 10.2 mg/dL [facility] Protein 8.0 6.3 - 8.3 g/dL [place] Comment: [facility] 4.6-7.0 g/dL 1 week 4.4-7.6 g/dL 7 months-1year 5.1-7.3 g/dL 1-2 years5.6-7 .5 g/dL >3 years6.0-8 .0 g/dL 18-150 6.3-8.3 g/dL Albumin 4.3 3.5 - 5.0 g/dL [facility] A/G ratio 1.2 0.7 - 3.8 [facility] Alkaline 85 40 - 129 U/L [place] phosphatase [facility] AST 25 10 - 50 U/L [facility] ALT 21 5 - 50 U/L [facility] Total bilirubin 0.5 0.0 - 1.2 mg/dL [facility] Specimen Plasma specimen Performing Organization Address City/State/Zipcode Phone Number [facility] [id number] [place] [address] [place] [address] PATHOLOGY AND GENOMIC MEDICINE [address] [place] [address] [facility] * XR Tibia Fibula 2 Vw Right (08/13/2018 3:05 PM ETHANOL QUALITY LEADER) Specimen Narrative Performed At EXAMINATION:XR TIBIA FIBULA 2 VW RIGHT [facility] CLINICAL HISTORY:lower leg pain COMPARISON:None. IMPRESSION: No acute fracture, dislocation or focal osseous abnormality noted. Bone mineralization is within normal limits for age. There are degenerative changes of the medial femorotibial joint with marginal osteophytes. [facility] Procedure Note Hm Interface, Radiology Results Incoming - 08/13/2018 3:12 PM [employer] LEADER EXAMINATION: XR TIBIA FIBULA 2 VW RIGHT CLINICAL HISTORY: lower leg pain COMPARISON: None. IMPRESSION: No acute fracture, dislocation or focal osseous abnormality noted. Bone mineralization is within normal limits for age. There are degenerative changes of the medial femorotibial joint with marginal osteophytes. [facility] Performing Organization Address [facility] Phone Number ROBERT [address] [place] [address] * Vitamin B1 level, whole blood (04/21/2018 2:06 PM CDT) Pathologist [facility] [place] Vitamin B1, 152 78 - 185 nmol/L [facility] whole blood Comment: DIAGNOSTICS Vitamin supplementation GRIFFIN within 24 hours prior to blood GONZALEZ draw may affect the accuracy of results. This test was developed and its analytical performance characteristics have been determined by [facility]. It has not been cleared or approved by FDA. This assay has been validated pursuant to the CLIA regulations and is used for clinical purposes. Specimen Blood Narrative Performed At AN UPDATE OR CORRECTION HAS BEEN MADE TO NAME wooju Resulting Agency Comment Performing Organization Information: Site ID: [id number] Name: [facility] Address: [id number] [place] [id number] Director: Orlin Dominguez M.D., Ph.D Performing Organization Address [facility] Phone Number [employer] [address] [address] [place] [address] [place] * Immunofixation, serum (04/21/2018 2:06 PM CDT) Pathologist [facility] [place] Interpretation Comment: [facility] Normal pattern. No monoclonal DIAGNOSTICS-ABIMBOLA proteins detected. ING II Specimen Blood Narrative Performed At AN UPDATE OR CORRECTION HAS BEEN MADE TO NAME wooju Resulting Agency Comment Performing Organization Information: Site ID: [id number] Name: [facility] Address: [address] [place] [address] Director: Dr. Pranav Bailon Performing Organization Address [facility] Phone Number [facility] [address] [place] [address] II * Vitamin B6 level, plasma (04/21/2018 2:06 PM CDT) Pathologist [facility] [place] Vitamin B6 31.7 (H) 2.1 - 21.7 ng/mL [facility] Comment: DIAGNOSTICS Vitamin supplementation GRIFFIN within 24 hours prior to blood GONZALEZ draw may affect the accuracy of results. This test was developed and its analytical performance characteristics have been determined by [facility]. It has not been cleared or approved by the US Food and Drug Administration. This assay has been validated pursuant to the CLIA regulations and is used for clinical purposes. Specimen Blood Narrative Performed At AN UPDATE OR CORRECTION HAS BEEN MADE TO NAME [facility] Resulting Agency Comment Performing Organization Information: Site ID: [id number] Name: [facility] Address: [address] [place] [id number] Director: Orlin Dominguez M.D., Ph.D Performing Organization Address City/[facility] Phone Number SIMÓN [employer] [address] [address] [place] * Folate level (04/21/2018 2:06 PM CDT) Pathologist [facility] [place] Folate >24.0 ng/mL [facility] Comment: [employer] [place] Reference Range Low: <3.4 Borderline:3.4-5.4 Normal:>5.4 Specimen Blood Narrative Performed At AN UPDATE OR CORRECTION HAS BEEN MADE TO NAME [facility] Resulting Agency Comment Performing Organization Information: Site ID: [id number] Name: [facility] Address: [address] [place] [id number] Director: Lindsay Sanchez Performing Organization Address City/[facility] Phone Number [facility] [employer] [address] [address] after 01/08/2018 Insurance Type Payer Benefit Subscriber ID Effective Phone Address Plan / Dates Group HMO AETNA MEDICARE AETNA xxxxxxxx [id number] MEDICARE resent HMO/PPO [facility] Advance Directives Patient has advance care planning documents on file. For more information, valeriano holland contact: Jean Carlos Louis [address] [place] [address]
--- NOTE | 2019-01-09 07:15 | NUR ---
SPIRITUAL CARE - Pre-Surgery Assessment: Pt in bed. Pt's at bedside. Pt reported supportive attention from family and friends. Intervention: I provided pastoral presence, hospitality, and sympathetic listening. I acquainted pt with availability of chief engineer while hospitalized. Outcome: Pt expressed appreciation for visit. No need for follow up indicated at this time. RACHAEL Ballardlain Spiritual Care Department O: [phone] Pager: [phone] ([phone] + number calling from)
[2019-01-09 09:20] VITALS: BP 120/75
--- NOTE | 2019-01-09 11:46 | Operative Report ---
DATE OF PROCEDURE: 01/09/2019 SURGEON: Prem Coronado MD PROCEDURES: Colonoscopy and polypectomy. INDICATIONS FOR PROCEDURE: Surveillance colonoscopy and personal history of colon polyps. MEDICATIONS: The patient was done under MAC, please see anesthesiologist's note. PROCEDURE IN DETAIL: With the patient in the left lateral decubitus position, a flexible fiberoptic Olympus colonoscope was inserted into the rectum with ease and advanced all the way to the cecum. It was then withdrawn slowly. Mucosa overlying the cecum appeared to be within normal limits. One polyp was noted in the hepatic flexure and that was removed per cold biopsy forceps. Scattered diverticular disease was noted in the transverse, descending, and sigmoid colon. The rectum appeared to be within normal limits. The scope was then retroflexed into the distal rectum and moderate-sized internal hemorrhoids were noted, none of which was actively bleeding. The scope was then straightened out, it was subsequently withdrawn. The patient tolerated the procedure well. IMPRESSION: 1. Colon polyp, hepatic flexure removed per cold biopsy forceps. 2. Diverticulosis. 3. Internal hemorrhoids, none actively bleeding. PLAN: Follow up histology. Initiate high-fiber, low-fat diet. Initiate high-fiber supplement. The patient might benefit from a followup colonoscopy in 5-10 years. Prem Coronado MD [facility] /[id number] cc: Toño Rogers MD
== END | disposition home or self-care (01) ==
LOC: OR 06:11
PROVIDERS: ATTEND Internal Medicine Gastroenterology
DX: Z09 Encounter for follow-up examination after completed treatment for conditions other than malignant neoplasm (principal); D12.3 Benign neoplasm of transverse colon; K57.30 Diverticulosis of large intestine without perforation or abscess without bleeding; K64.8 Other hemorrhoids; R10.10 Upper abdominal pain, unspecified; K21.9 Gastro-esophageal reflux disease without esophagitis; I10 Essential (primary) hypertension; Z01.810 Encounter for preprocedural cardiovascular examination; Z01.812 Encounter for preprocedural laboratory examination
CPT/HCPCS: 36415; 45380; 85025; 88305; 93005; J1610; J2001; J2250; J2704

== ENCOUNTER 2019-02-28 12:47 | Observation (INO) | payer MEDICARE ==
[~2019-02-28] VITALS: Ht 165.1 cm; Wt 66.7 kg
[~2019-02-28 12:47] MED LIST changes: -LEVAQUIN500 MG PO; -LISINOPRIL10 MG PO; -XARELTO10 MG PO
--- OUTSIDE RECORDS SUMMARY | 2019-02-28 12:52 | XMS REPORT | Clinical Summary ---
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 Name Role Phone Toño Rogers MD PCP [...] without sciatica 03/23/2018 Office Visit Neurology after 02/27/2018 Family History Medical History Relation Name Comments [...] Taken Vital Sign Reading 08/13/2018 6:57 PM SANDFILL OPERATOR Blood Pressure 169/95 08/13/2018 6:57 PM SANDFILL OPERATOR Pulse 79 08/13/2018 1:16 PM SANDFILL OPERATOR Temperature 37.1 C (98.8 F) 08/13/2018 6:57 PM SANDFILL OPERATOR Respiratory Rate 17 08/13/2018 6:57 PM SANDFILL OPERATOR Oxygen Saturation 95% - Inhaled Oxygen - Concentration 08/13/2018 1:17 PM SANDFILL OPERATOR Weight 64 kg (141 lb) 08/13/2018 1:17 PM SANDFILL OPERATOR Height 165.1 cm (5' 5") 08/13/2018 1:17 PM SANDFILL OPERATOR Body Mass Index 23.46 Plan of Treatment Health Maintenance Due Date Last Done Comments SHINGLES VACCINES (#1) 1990 65+ PNEUMOCOCCAL VACCINE 2005 (1 of 2 - PCV13) INFLUENZA VACCINE 03/09/2019 Procedures Comments Procedure Name Priority Date/Time Associated Diagnosis US DUPLEX VENOUS LOWER STAT 08/13/2018 EXTREMITY RIGHT 5:51 PM SANDFILL OPERATOR ESTIMATED GFR STAT 08/13/2018 5:20 PM SANDFILL OPERATOR PARTIAL THROMBOPLASTIN STAT 08/13/2018 TIME (PTT) 5:20 PM SANDFILL OPERATOR PROTHROMBIN TIME WITH INR STAT 08/13/2018 5:20 PM SANDFILL OPERATOR COMPREHENSIVE METABOLIC STAT 08/13/2018 PANEL 5:20 PM SANDFILL OPERATOR HC COMPLETE BLD COUNT STAT 08/13/2018 W/AUTO DIFF 5:20 PM SANDFILL OPERATOR XR TIBIA FIBULA 2 VW STAT 08/13/2018 RIGHT 3:05 PM SANDFILL OPERATOR IMMUNOFIXATION, SERUM Routine 04/21/2018 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 Performing Organization Address [facility]/Zipcode Phone Number [facility] [address] [place] [address] * Estimated GFR (08/13/2018 5:20 PM SANDFILL OPERATOR) [facility] Estimated GFR 81 mL/min/1.73 m2 [place] Comment: LLOYD RIVERS [facility] rpretation G1 >=90 Normal or high G2 60-89Mildly decreased [id number] Mildly to moderately decreased [id number] Moderately to severely decreased G4 15-29Severely decreased G5 <15Kidney failure The eGFR was calculated using the Chronic Kidney Disease Epidemiology Collaboration (CKD-EPI) equation. Interpretation is based on recommendations of the National Kidney Foundation-Kidney Disease Outcomes Quality Initiative (NKF-KDOQI) published in 2014. Specimen Plasma specimen Performing Organization Address [facility] Phone Number [address] [place] [address] PATHOLOGY AND [facility] MEDICINE [address] * Partial thromboplastin time, activated (08/13/2018 5:20 PM SANDFILL OPERATOR) [facility] PTT 28.1 23.0 - 36.0 sec [place] Comment: LLOYD RIVERS PTT therapeutic range for [facility] unfractionated heparin is 61.0-112.0 seconds which corresponds to Anti-Xa 0.3-0.7 U/ml. Specimen Blood Performing Organization Address [facility] Phone Number [address] [place] [address] PATHOLOGY AND [facility]IC[facility] [address] * Prothrombin time with INR (08/13/2018 5:20 PM SANDFILL OPERATOR) [facility] Prothrombin 13.0 11.5 - 14.5 sec [facility] INR 1.0 [place] Comment: LLOYD NGUYEN The International Normalized [facility] Ratio (INR) is a therapeutic monitoring tool for patients who are stable on oral anticoagulant therapy. An INR of 2.0-3.0 is suggested for deep vein thrombosis/pulmonary embolism. Specimen Blood Performing Organization Address [facility] Phone Number [address] [place] [address] PATHOLOGY AND GENOMIC MEDICINE [address] * CBC with platelet and differential (08/13/2018 5:20 PM SANDFILL OPERATOR) [facility] WBC 8.02 4.50 - 11.00 k/uL [facility] RBC 4.66 4.40 - 6.00 m/uL [facility] HGB 16.4 14.0 - 18.0 g/dL [facility] HCT 48.9 41.0 - 51.0 % [facility] MCV 104.9 (H) 82.0 - 100.0 fL [facility] MCH 35.2 (H) 27.0 - 34.0 pg [facility] MCHC 33.5 31.0 - 37.0 g/dL [facility] RDW - SD 56.7 (H) 37.0 - 55.0 fL [facility] MPV 10.4 8.8 - 13.2 fL [facility] Platelet count 165 150 - 400 k/uL [facility] Nucleated RBC 0.00 /100 WBC [facility] Neutrophils 61.0 39.0 - 69.0 % [facility] Lymphocytes 24.7 (L) 25.0 - 45.0 % [facility] Monocytes 11.0 (H) 0.0 - 10.0 % [facility] Eosinophils 1.9 0.0 - 5.0 % [facility] Basophils 1.2 (H) 0.0 - 1.0 % [facility] Specimen Blood Performing Organization Address City/State/Zipcode Phone Number [facility] DEPARTMENT OF [address] [place] [address] [place] [address] PATHOLOGY AND GENOMIC MEDICINE [address] * Comprehensive metabolic panel (08/13/2018 5:20 PM SANDFILL OPERATOR) [facility] Sodium 140 135 - 148 mEq/L [facility] Potassium 4.3 3.5 - 5.0 mEq/L [facility] Chloride 104 98 - 112 mEq/L [facility] CO2 25 24 - 31 mEq/L [facility] Anion gap 11@ANIO 7 - 15 mEq/L [facility] BUN 14 8 - 23 mg/dL [facility] Creatinine 0.90 0.70 - 1.20 mg/dL [facility] Glucose 111 (H) 65 - 99 mg/dL [facility] Calcium 9.5 8.8 - 10.2 mg/dL [facility] Protein 8.0 6.3 - 8.3 g/dL [place] Comment: [facility] 4.6-7.0 g/dL 1 week 4.4-7.6 g/dL 7 months-1year 5.1-7.3 g/dL 1-2 years5.6-7 .5 g/dL >3 years6.0-8 .0 g/dL 18-150 6.3-8.3 g/dL Albumin 4.3 3.5 - 5.0 g/dL [facility] A/G ratio 1.2 0.7 - 3.8 [facility] Alkaline 85 40 - 129 U/L [place] phosphatase [facility] AST 25 10 - 50 U/L [facility] ALT 21 5 - 50 U/L [facility] Total bilirubin 0.5 0.0 - 1.2 mg/dL [facility] Specimen Plasma specimen Performing Organization Address City/State/Zipcode Phone Number [facility] [place] [id number] [place] [address] [place] [address] PATHOLOGY AND GENOMIC MEDICINE [facility] [id number] [place] [address] * XR Tibia Fibula 2 Vw Right (08/13/2018 3:05 PM SANDFILL OPERATOR) Specimen Narrative Performed At EXAMINATION:XR TIBIA FIBULA 2 VW RIGHT [facility] CLINICAL HISTORY:lower leg pain COMPARISON:None. IMPRESSION: No acute fracture, dislocation or focal osseous abnormality noted. Bone mineralization is within normal limits for age. There are degenerative changes of the medial femorotibial joint with marginal osteophytes. [facility] Procedure Note Hm Interface, Radiology Results Incoming - 08/13/2018 3:12 PM SANDFILL OPERATOR EXAMINATION: XR TIBIA FIBULA 2 VW RIGHT CLINICAL HISTORY: lower leg pain COMPARISON: None. IMPRESSION: No acute fracture, dislocation or focal osseous abnormality noted. Bone mineralization is within normal limits for age. There are degenerative changes of the medial femorotibial joint with marginal osteophytes. [facility] Performing Organization Address City/[facility]/Zipcode Phone Number [facility] [address] [place] [address] * Vitamin B1 level, whole blood (04/21/2018 2:06 PM CDT) [facility] Vitamin B1, 152 78 - 185 nmol/L [facility] whole blood Comment: DIAGNOSTICS Vitamin supplementation ALVARES within 24 hours prior to blood GONZALEZ draw may affect the accuracy of results. This test was developed and its analytical performance characteristics have been determined by [facility]. It has not been cleared or approved by FDA. This assay has been validated pursuant to the CLIA regulations and is used for clinical purposes. Specimen Blood Narrative Performed At AN UPDATE OR CORRECTION HAS BEEN MADE TO NAME Enabled Employment Resulting Agency Comment Performing Organization Information: Site ID: [id number] Name: [facility] Address: [address] [place] [id number] Director: Orlin Dominguez M.D., Ph.D Performing Organization Address [facility] Phone Number [employer] [address] [address] [place] * Immunofixation, serum (04/21/2018 2:06 PM CDT) [facility] Interpretation Comment: [facility] Normal pattern. No monoclonal DIAGNOSTICS-ABIMBOLA proteins detected. ING II Specimen Blood Narrative Performed At AN UPDATE OR CORRECTION HAS BEEN MADE TO NAME [employer] Agency Comment Performing Organization Information: Site ID: [id number] Name: [facility] Address: [address] [place] [address] Director: Dr. Pranav Bailon Performing Organization Address [facility] Phone Number [facility] [address] [facility] [place] [address] II * Vitamin B6 level, plasma (04/21/2018 2:06 PM CDT) Vitamin B6 31.7 (H) 2.1 - 21.7 ng/mL [facility] Comment: DIAGNOSTICS Vitamin supplementation ALVARES within 24 hours prior to blood GONZALEZ draw may affect the accuracy of results. This test was developed and its analytical performance characteristics have been determined by [employer] [facility]. It has not been cleared or approved by the US Food and Drug Administration. This assay has been validated pursuant to the CLIA regulations and is used for clinical purposes. Specimen Blood Narrative Performed At AN UPDATE OR CORRECTION HAS BEEN MADE TO NAME [facility] Resulting Agency Comment Performing Organization Information: Site ID: [id number] Name: [facility] Address: [address] [place] [address] Director: Orlin Dominguez M.D., Ph.D Performing Organization Address City/[facility] Cent[facility] Phone Number SIMÓN [employer] [place] [id number] [place] [address] [place] * Folate level (04/21/2018 2:06 PM CDT) Folate >24.0 ng/mL [facility] Comment: [employer] [place] Reference Range Low: <3.4 Borderline:3.4-5.4 Normal:>5.4 Specimen Blood Narrative Performed At AN UPDATE OR CORRECTION HAS BEEN MADE TO NAME [facility] Resulting Agency Comment Performing Organization Information: Site ID: [id number] Name: [facility] Address: [address] [place] [phone] Director: Lindsay Sanchez Performing Organization Address City/[facility] Phone Number SIM[employer]N [employer] [place] [address] [place] [phone] after 02/27/2018 Insurance Type Payer Benefit Subscriber ID Effective Phone Address Plan / Dates Group HMO AETNA MEDICARE AETNA xxxxxxxx [id number] MEDICARE resent HMO/PPO [facility] Advance Directives Patient has advance care planning documents on file. For more information, valeriano holland contact: Jean Carlos Louis [address] [place] [address]
[2019-02-28] MEDS ORDERED: ENOXAPARIN SODIUM INJ 100 MG/ML SYR SC NR (13:45)
[2019-02-28 14:01] LABS: BASOPHILS # (AUTO) 0.1 (0.0-0.1); BASOPHILS % 1.2 % (0.0-1.0); EOSINOPHILS # (AUTO) 0.1 (0.0-0.4); EOSINOPHILS % 2.2 % (0.0-6.0); HEMATOCRIT 54.8 % (38.2-49.6); HEMOGLOBIN 19.3 g/dL (14.0-18.0); LYMPHOCYTES # (AUTO) 1.4 (1.0-3.2); LYMPHOCYTES % 28.5 % (18.0-39.1); MEAN CORPUSCULAR HEMOGLOBIN 35.3 pg (28-32); MEAN CORPUSCULAR HGB CONC 35.2 g/dL (31-35); MEAN CORPUSCULAR VOLUME 100.4 fL (81-99); MONOCYTES # (AUTO) 0.7 (0.2-0.8); MONOCYTES % 14.6 % (4.4-11.3); NEUTROPHILS # (AUTO) 2.7 (2.1-6.9); NEUTROPHILS % 53.1 % (38.7-80.0); PLATELET COUNT 183 x10e3/uL (140-360); RED BLOOD COUNT 5.46 x10e6/uL (4.3-5.7); RED CELL DISTRIBUTION WIDTH 12.6 % (11.7-14.4)
[2019-02-28 14:01] LABS: BILIRUBIN,URINE NEGATIVE (NEGATIVE); CLARITY,URINE CLEAR (CLEAR); COLOR,URINE YELLOW (YELLOW); KETONES,URINE NEGATIVE (NEGATIVE); LEUKOCYTE ESTERASE ,URINE NEGATIVE (NEGATIVE); NITRITE,URINE NEGATIVE (NEGATIVE); PROTEIN,URINE DIPSTICK NEGATIVE (NEGATIVE); URINE UROBILINOGEN 0.2 mg/dL (0.2 - 1)
--- OUTSIDE RECORDS SUMMARY | 2019-02-28 14:04 | XMS REPORT | Clinical Summary ---
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 Name Role Phone Toño Rogers MD PCP [...] Taken Vital Sign Reading 08/13/2018 6:57 PM TOPPER PACKER Blood Pressure 169/95 08/13/2018 6:57 PM TOPPER PACKER Pulse 79 08/13/2018 1:16 PM TOPPER PACKER Temperature 37.1 C (98.8 F) 08/13/2018 6:57 PM TOPPER PACKER Respiratory Rate 17 08/13/2018 6:57 PM TOPPER PACKER Oxygen Saturation 95% - Inhaled Oxygen - Concentration 08/13/2018 1:17 PM TOPPER PACKER Weight 64 kg (141 lb) 08/13/2018 1:17 PM TOPPER PACKER Height 165.1 cm (5' 5") 08/13/2018 1:17 PM TOPPER PACKER Body Mass Index 23.46 Plan of Treatment Health Maintenance Due Date Last Done Comments SHINGLES VACCINES (#1) 1990 65+ PNEUMOCOCCAL VACCINE 2005 (1 of 2 - PCV13) INFLUENZA VACCINE 03/09/2019 Procedures Comments Procedure Name Priority Date/Time Associated Diagnosis US DUPLEX VENOUS LOWER STAT 08/13/2018 EXTREMITY RIGHT 5:51 PM TOPPER PACKER ESTIMATED GFR STAT 08/13/2018 5:20 PM TOPPER PACKER PARTIAL THROMBOPLASTIN STAT 08/13/2018 TIME (PTT) 5:20 PM TOPPER PACKER PROTHROMBIN TIME WITH INR STAT 08/13/2018 5:20 PM TOPPER PACKER COMPREHENSIVE METABOLIC STAT 08/13/2018 PANEL 5:20 PM TOPPER PACKER HC COMPLETE BLD COUNT STAT 08/13/2018 W/AUTO DIFF 5:20 PM TOPPER PACKER XR TIBIA FIBULA 2 VW STAT 08/13/2018 RIGHT 3:05 PM TOPPER PACKER IMMUNOFIXATION, SERUM Routine 04/21/2018 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 Performing Organization Address [facility]/Zipcode Phone Number [facility] [address] [place] [address] * Estimated GFR (08/13/2018 5:20 PM TOPPER PACKER) [facility] Estimated GFR 81 mL/min/1.73 m2 [place] Comment: [place]IV[place] [facility] rpretation G1 >=90 Normal or high G2 60-89Mildly decreased [id number] Mildly to moderately decreased [id number] Moderately to severely decreased G4 15-29Severely decreased G5 <15Kidney failure The eGFR was calculated using the Chronic Kidney Disease Epidemiology Collaboration (CKD-EPI) equation. Interpretation is based on recommendations of the National Kidney Foundation-Kidney Disease Outcomes Quality Initiative (NKF-KDOQI) published in 2014. Specimen Plasma specimen Performing Organization Address [facility] Phone Number [address] [place] [address] PATHOLOGY AND [facility] MEDICINE [address] * Partial thromboplastin time, activated (08/13/2018 5:20 PM TOPPER PACKER) [facility] PTT 28.1 23.0 - 36.0 sec [place] Comment: LLOYD RIVERS PTT therapeutic range for [facility] unfractionated heparin is 61.0-112.0 seconds which corresponds to Anti-Xa 0.3-0.7 U/ml. Specimen Blood Performing Organization Address [facility] Phone Number [address] [place] [address] PATHOLOGY AND [facility] MEDICINE [address] * Prothrombin time with INR (08/13/2018 5:20 PM TOPPER PACKER) [facility] Prothrombin 13.0 11.5 - 14.5 sec [facility] INR 1.0 [place]ON Comment: LLOYD NGUYEN The International Normalized [facility] Ratio (INR) is a therapeutic monitoring tool for patients who are stable on oral anticoagulant therapy. An INR of 2.0-3.0 is suggested for deep vein thrombosis/pulmonary embolism. Specimen Blood Performing Organization Address [facility] Phone Number [address] [place] [address] PATHOLOGY AND GENOMIC MEDICINE [address] * CBC with platelet and differential (08/13/2018 5:20 PM TOPPER PACKER) [facility] WBC 8.02 4.50 - 11.00 k/uL [facility] RBC 4.66 4.40 - 6.00 m/uL [facility] HGB 16.4 14.0 - 18.0 g/dL [facility] HCT 48.9 41.0 - 51.0 % [facility] MCV 104.9 (H) 82.0 - 100.0 fL [facility] MCH 35.2 (H) 27.0 - 34.0 pg [facility] MCHC 33.5 31.0 - 37.0 g/dL [facility] RDW - SD 56.7 (H) 37.0 - 55.0 fL [facility] MPV 10.4 8.8 - 13.2 fL [facility] Platelet count 165 150 - 400 k/uL [facility] Nucleated RBC 0.00 /100 WBC [facility] Neutrophils 61.0 39.0 - 69.0 % [facility] Lymphocytes 24.7 (L) 25.0 - 45.0 % [facility] Monocytes 11.0 (H) 0.0 - 10.0 % [facility] Eosinophils 1.9 0.0 - 5.0 % [facility] Basophils 1.2 (H) 0.0 - 1.0 % [facility] Specimen Blood Performing Organization Address City/State/Zipcode Phone Number [facility] DEPARTMENT OF [address] [place] [address] [place] [address] PATHOLOGY AND GENOMIC MEDICINE [address] * Comprehensive metabolic panel (08/13/2018 5:20 PM TOPPER PACKER) [facility] Sodium 140 135 - 148 mEq/L [facility] Potassium 4.3 3.5 - 5.0 mEq/L [facility] Chloride 104 98 - 112 mEq/L [facility] CO2 25 24 - 31 mEq/L [facility] Anion gap 11@ANIO 7 - 15 mEq/L [facility] BUN 14 8 - 23 mg/dL [facility] Creatinine 0.90 0.70 - 1.20 mg/dL [facility] Glucose 111 (H) 65 - 99 mg/dL [facility] Calcium 9.5 8.8 - 10.2 mg/dL [facility] Protein 8.0 6.3 - 8.3 g/dL [place] Comment: [facility] 4.6-7.0 g/dL 1 week 4.4-7.6 g/dL 7 months-1year 5.1-7.3 g/dL 1-2 years5.6-7 .5 g/dL >3 years6.0-8 .0 g/dL 18-150 6.3-8.3 g/dL Albumin 4.3 3.5 - 5.0 g/dL [facility] A/G ratio 1.2 0.7 - 3.8 [facility] Alkaline 85 40 - 129 U/L [place] phosphatase [facility] AST 25 10 - 50 U/L [facility] ALT 21 5 - 50 U/L [facility] Total bilirubin 0.5 0.0 - 1.2 mg/dL [facility] Specimen Plasma specimen Performing Organization Address City/State/Zipcode Phone Number [facility] [place] [id number] [place] [address] [place] [address] PATHOLOGY AND GENOMIC MEDICINE [facility] [id number] [place] [address] * XR Tibia Fibula 2 Vw Right (08/13/2018 3:05 PM TOPPER PACKER) Specimen Narrative Performed At EXAMINATION:XR TIBIA FIBULA 2 VW RIGHT [facility] CLINICAL HISTORY:lower leg pain COMPARISON:None. IMPRESSION: No acute fracture, dislocation or focal osseous abnormality noted. Bone mineralization is within normal limits for age. There are degenerative changes of the medial femorotibial joint with marginal osteophytes. [facility] Procedure Note Hm Interface, Radiology Results Incoming - 08/13/2018 3:12 PM TOPPER PACKER EXAMINATION: XR TIBIA FIBULA 2 VW RIGHT CLINICAL HISTORY: lower leg pain COMPARISON: None. IMPRESSION: No acute fracture, dislocation or focal osseous abnormality noted. Bone mineralization is within normal limits for age. There are degenerative changes of the medial femorotibial joint with marginal osteophytes. [facility] Performing Organization Address City/[facility]/Zipcode Phone Number [facility] [address] [place] [address] * Vitamin B1 level, whole blood (04/21/2018 2:06 PM CDT) [facility] Vitamin B1, 152 78 - 185 nmol/L [facility] whole blood Comment: DIAGNOSTICS Vitamin supplementation ALVARES within 24 hours prior to blood GONZALEZ draw may affect the accuracy of results. This test was developed and its analytical performance characteristics have been determined by [facility]. It has not been cleared or approved by FDA. This assay has been validated pursuant to the CLIA regulations and is used for clinical purposes. Specimen Blood Narrative Performed At AN UPDATE OR CORRECTION HAS BEEN MADE TO NAME [employer] Resulting Agency Comment Performing Organization Information: Site ID: [id number] Name: [facility] Address: [address] [place] [id number] Director: Orlin Dominguez M.D., Ph.D Performing Organization Address [facility] Phone Number [employer] [address] [address] [place] * Immunofixation, serum (04/21/2018 2:06 PM CDT) [facility] Interpretation Comment: [facility] Normal pattern. No monoclonal DIAGNOSTICS-ABIMBOLA proteins detected. ING II Specimen Blood Narrative Performed At AN UPDATE OR CORRECTION HAS BEEN MADE TO NAME [employer] Agency Comment Performing Organization Information: Site ID: [id number] Name: [facility] Address: [address] [place] [address] Director: Dr. Pranav Bailon Performing Organization Address [facility] Phone Number [facility] [facility] [address] [facility] [place] [address] II * Vitamin B6 level, plasma (04/21/2018 2:06 PM CDT) Vitamin B6 31.7 (H) 2.1 - 21.7 ng/mL [facility] Comment: DIAGNOSTICS Vitamin supplementation ALVARES within 24 hours prior to blood GONZALEZ draw may affect the accuracy of results. This test was developed and its analytical performance characteristics have been determined by [employer] [facility]. It has not been cleared or approved by the US Food and Drug Administration. This assay has been validated pursuant to the CLIA regulations and is used for clinical purposes. Specimen Blood Narrative Performed At AN UPDATE OR CORRECTION HAS BEEN MADE TO NAME [facility] Resulting Agency Comment Performing Organization Information: Site ID: [id number] Name: [facility] Address: [address] [place] [address] Director: Orlin Dominguez M.D., Ph.D Performing Organization Address City/[facility] Phone Number [facility] [place] [id number] [place] [address] [place] * Folate level (04/21/2018 2:06 PM CDT) Folate >24.0 ng/mL [facility] Comment: [facility] [place]ON Reference Range Low: <3.4 Borderline:3.4-5.4 Normal:>5.4 Specimen Blood Narrative Performed At AN UPDATE OR CORRECTION HAS BEEN MADE TO NAME [facility] Resulting Agency Comment Performing Organization Information: Site ID: [id number] Name: [facility] Address: [address] [place] [id number] Director: Lindsay Sanchez Performing Organization Address City/[facility] Phone Number [employer] [place] [address] [place] [phone] after 02/27/2018 Insurance Type Payer Benefit Subscriber ID Effective Phone Address Plan / Dates Group HMO AETNA MEDICARE AETNA xxxxxxxx [id number] MEDICARE resent HMO/PPO [facility] Advance Directives Patient has advance care planning documents on file. For more information, valeriano holland contact: Jean Carlos Louis [address] [place] [address]
[2019-02-28] MEDS: ENOXAPARIN SODIUM INJ 100 MG/ML SYR SC SCH (14:08)
[2019-02-28 14:18] LABS: BACTERIA,URINE FEW /HPF
[2019-02-28 14:31] LABS: ALANINE AMINOTRANSFERASE 24 IU/L (0-55); ALBUMIN 3.8 g/dL (3.5-5.0); ALBUMIN/GLOBULIN RATIO 1.1 (0.8-2.0); ALKALINE PHOSPHATASE 57 IU/L (40-150); ANION GAP 13.3 mmol/L (8-16); BLOOD UREA NITROGEN 7 mg/dL (7-26); BUN/CREATININE RATIO 9 (6-25); CALCIUM 9.2 mg/dL (8.4-10.2); CARBON DIOXIDE 27 mmol/L (22-29); CHLORIDE 97 mmol/L (98-107); EST GLOMERULAR FILTRATION RATE > 60 ML/MIN (60-); GLUCOSE 87 mg/dL (74-118); POTASSIUM 4.3 mmol/L (3.5-5.1); SODIUM 133 mmol/L (136-145)
--- NOTE | 2019-02-28 15:48 | NUR ---
RCD PT FROM ER BY STRETCHER PT IS ALERT AND ORIENTED VITALS CHECKED PT RESTING ON BED ADMISSION ASSESSMENT DONE IV PATENT BY SALINE FLUSH INSTRUCTED PT REGARDING HOSPITAL POLICY AND ROUTINE BED LOW AND LOCKED CALL LIGHT IN REACH
[2019-02-28 16:04] VITALS: BP 165/89
[2019-02-28] MEDS: SUCRALFATE 1 GM TAB PO SCH ×2 (17:25→20:35)
[2019-02-28 18:01] VITALS: BP 165/89
[2019-02-28 18:17] VITALS: BP 165/89
--- NOTE | 2019-02-28 19:04 | NUR ---
PT RESTING ON BED BED SIDE REPORT GIVEN TO ONCOMING NURSE
[2019-02-28 19:25] VITALS: BP 157/88
--- NOTE | 2019-02-28 23:17 | NUR ---
Paged Dr. Jose Coronado regarding elevated BP.
--- NOTE | 2019-02-28 23:35 | NUR ---
Received call back from Dr. Jose Coronado, no orders received. Instructed to continue monitoring bp.
[2019-02-28 23:40] VITALS: BP 157/99
[2019-03-01 04:00] VITALS: BP 155/94
[2019-03-01 04:53] VITALS: BP 157/99
--- NOTE | 2019-03-01 07:00 | NUR ---
BEDSIDE SHIFT REPORT RECEIVED FROM THE SCREEN PRINTING SUPERVISOR RN. PT DENIES NEEDS AT THIS TIME.
[2019-03-01 07:22] VITALS: BP 144/74
[2019-03-01] MEDS: SUCRALFATE 1 GM TAB PO SCH ×2 (07:30→11:30)
[2019-03-01] MEDS: ENOXAPARIN SODIUM INJ 100 MG/ML SYR SC SCH (08:19)
[2019-03-01] MEDS ORDERED: LEVAQUIN500 MG PO (08:24)
[2019-03-01] MEDS ORDERED: PANTOPRAZOLE SO40 MG PO (08:25)
[2019-03-01 09:00] VITALS: BP 144/74
[2019-03-01] MEDS ORDERED: NON-FORMULARY MEDICATION ([Vit B12] 1 TAB) PO SCH (09:00)
[2019-03-01] MEDS ORDERED: CYANOCOBALAMIN 1,000 MCG TAB PO SCH (09:00)
--- NOTE | 2019-03-01 09:00 | NUR ---
PT IS HAVING HOME MEDS. EDUCATED PT ABOUT HOSPITAL POLICY REGARDING MEDICATIONS.
--- NOTE | 2019-03-01 11:00 | NUR ---
Visit made by the Spiritual Care Department Pastoral Visitor, Astrid Velasco. PV provided pastoral presence, prayer, hospitality, and supportive listening. Pastoral Visitor informed pt/family of the scope of [employer] and availability. RACHAEL CARDENAS Instrument Calibrator Spiritual Care Department O: [phone] Pager: [phone] ([phone] number calling from)
[2019-03-01 11:24] VITALS: BP 186/88
--- NOTE | 2019-03-01 11:30 | NUR ---
PAGED DR LANZA REGARDING PT ELEVATED BLOOD PRESSURE. NO NEW ORDERS RECEIVED.
--- NOTE | 2019-03-01 12:00 | NUR ---
DR. LANZA AT BEDSIDE TO SEE THE PT. INFORMED PT ELEVATED BLOOD PRESSURE. NO NEW ORDERS RECEIVED.
--- NOTE | 2019-03-01 12:30 | NUR ---
OKAY TO DISCHARGE PT PER DR. LANZA.
--- NOTE | 2019-03-01 12:33 | NUR ---
DREW SPOKE TO DR. LANZA WITH [facility] REGARDING PATIENT PLAN OF CARE AND DISCHARGE PLAN. DR. LANZA STATES HE WANTS TO DISCHARGE PATIENT. DREW REQUESTED OBSERVATION STATUS. DR. LANZA GAVE VERBAL ORDER TO PLACE PATIENT IN OBSERVATION STATUS. DREW CONNER PLACED ORDER IN SYSTEM AND CHANGED PATIENT TO OBS STATUS IN [employer] SYSTEM. PATIENT TO DISCHARGE HOME TODAY WITH NO NEEDS.
[2019-03-01] MEDS ORDERED: LISINOPRIL10 MG PO (14:01)
[2019-03-01] MEDS ORDERED: XARELTO10 MG PO (14:02)
--- NOTE | 2019-03-01 14:45 | NUR ---
PT DISCHARGED HOME SAFELY WITH FAMILY. ESCORTED PT VIA WHEEL CHAIR TO THE FRONT ENTRANCE. IV REMOVED. TIP INTACT. NO BLEEDING NOTED. DRESSING APPLIED. RX GIVEN. PT VERBALIZED UNDERSTANDING. PT DENIED FURTHER NEEDS.
== END 2019-03-01 14:55 | disposition home or self-care (01) ==
LOC: ER 12:47 → ERHOLD 13:44 → INTOOBSV 13:44 → MED/SURG2 15:48
DX: I82.431 Acute embolism and thrombosis of right popliteal vein (principal); I10 Essential (primary) hypertension; K22.70 Barrett's esophagus without dysplasia; E78.5 Hyperlipidemia, unspecified; Z96.652 Presence of left artificial knee joint; Z90.49 Acquired absence of other specified parts of digestive tract; D75.1 Secondary polycythemia
CPT/HCPCS: 36415; 80053; 81001; 85025; 85730; 99284; G0378 ×2; J1650 ×2

== ENCOUNTER → 2019-02-28 | Outpatient (CLI) | payer MEDICARE ==
[~2019-02-28] MED LIST changes: -FENTANYL CITRATE/PF 100MCG/2 ML INJ ONE; -GLUCAGON FOR INJ 1 MG VIAL ONE; +LEVAQUIN500 MG PO; -LIDOCAINE HCL 2% LOCAL INJ 5 ML SDV VIAL INJ ONE; +LISINOPRIL10 MG PO; -MIDAZOLAM HCL 2 MG/2 ML VIAL ONE; -PROPOFOL IV EMULSION 10 MG/ML 50 ML VIAL ONE; +XARELTO10 MG PO
== END ==
LOC: RAD 10:49
PROVIDERS: ATTEND Internal Medicine Gastroenterology
DX: I82.431 Acute embolism and thrombosis of right popliteal vein (principal); R60.9 Edema, unspecified
CPT/HCPCS: 93970

== ENCOUNTER → 2022-12-16 | Day surgery (SDC) | payer MEDICARE ==
[~2022-12-16] MED LIST changes: +AMLODIPINE BESYL5 MG PO; +FENTANYL CITRATE/PF 100MCG/2 ML INJ ONE; +LACTATED RINGER'S 1,000 ML ONE; +LEVAQUIN500 MG PO; +LIDOCAINE HCL 2% LOCAL INJ 5 ML SDV VIAL INJ ONE; +LISINOPRIL10 MG PO; +METOCLOPRAMIDE HCL 10 MG/2ML VIAL ONE; +PROPOFOL IV EMULSION 10 MG/ML 20 ML VIAL ONE; +VASCULERA630 MG; +XARELTO10 MG PO
[2022-12-16 07:56] VITALS: TEMP 97
[2022-12-16 08:15] VITALS: BP 110/65; PULSE 68; RESP 17; O2SAT 97
== END | disposition home or self-care (01) ==
LOC: OR 05:25
PROVIDERS: ATTEND Internal Medicine Gastroenterology
DX: K29.70 Gastritis, unspecified, without bleeding (principal); K31.7 Polyp of stomach and duodenum; K31.A0 Gastric intestinal metaplasia, unspecified; K20.90 Esophagitis, unspecified without bleeding; K21.9 Gastro-esophageal reflux disease without esophagitis; Z87.11 Personal history of peptic ulcer disease; R63.4 Abnormal weight loss; I10 Essential (primary) hypertension; Z79.01 Long term (current) use of anticoagulants; Z79.899 Other long term (current) drug therapy
CPT/HCPCS: 43239; C9113; J2001; J2704; J2765; J3010; J7121